=== PATIENT | female | born 1970 | race Caucasian/White ===

== ENCOUNTER 2017-11-24 00:23 | Emergency (ER) | payer MEDICAID ==
[~2017-11-24] VITALS: Ht 175.3 cm; Wt 106.1 kg
[2017-11-24 00:30] VITALS: Ht 175.3 cm; Wt 106.1 kg
[2017-11-24 01:13] LABS: PLATELET COUNT 344 x10^3mcL (130-400)
[2017-11-24 01:14] LABS: RED CELL DISTRIBUTION WIDTH 20.3 % (11.5-14.5)
[2017-11-24 01:31] LABS: CALCIUM 9.9 mg/dL (8.5-10.1); CARBON DIOXIDE 24.2 mmol/L (21-32); CREATININE SERUM 1.3 mg/dL (0.6-1.0)
[2017-11-24 01:38] LABS: BILIRUBIN TOTAL 0.19 mg/dL (0.20-1.00); TOTAL PROTEIN, SERUM 7.8 g/dL (6.4-8.2)
[2017-11-24 01:45] LABS: ALBUMIN 3.3 g/dL (3.4-5.0)
[2017-11-24 02:54] VITALS: BP 139/89
== END 2017-11-24 02:54 | disposition home or self-care (01) ==
LOC: ED 00:23
PROVIDERS: Emergency Medicine
DX: N39.0 Urinary tract infection, site not specified (principal); T83.192A Other mechanical complication of indwelling ureteral stent, initial encounter; Z88.2 Allergy status to sulfonamides
CPT/HCPCS: 36415